=== PATIENT | male | born 1965 | race Caucasian/White ===

== ENCOUNTER → 2016-11-24 | Outpatient (CLI) | payer OTHER ==
--- NOTE | 2016-11-24 16:03 | DIAGNOSTIC IMAGING REPORT ---
L-SPINE MIN 4 VIEWS ROUTINE CLINICAL HISTORY: Low back pain following fall 10 days ago. Lumbago. 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 There is slight loss of height of the superior endplate of L4. There is moderate disc space narrowing at L5-S1. IMPRESSION: 1. Slight loss of height of the superior endplate of L4. This is likely chronic although a mild compression fracture could appear similar. 2. Moderate disc space narrowing and osteophytosis at L5-S1. Electronically signed by: Chele Guzman M.D. 11/24/2016 4:02 PM Dictated Date/Time: 11/24/2016 4:00 PM
== END | disposition home or self-care (01) ==
LOC: C.RADBC 15:29
PROVIDERS: ATTEND Nurse Practitioner Family
DX: M54.5 Low back pain (principal); M54.10 Radiculopathy, site unspecified